=== PATIENT | male | born 1975 | race Caucasian/White ===

== ENCOUNTER 2021-03-17 07:59 | Emergency (ER) | payer SELFPAY ==
[2021-03-17 08:53] LABS: #Eosinphils 0.1 10x3/uL (0.0-0.5); #Monocytes 0.4 10x3/uL (0.0-1.1); #Neutrophils 2.4 10x3/uL (1.5-8.4); %Basophils 0.8 % (0.0-2.0); %Eosinophils 2.7 % (0.0-6.0); %Lymphocytes 36.6 % (18.0-47.0); %Neutrophils 50.1 % (40.0-75.0); Hemoglobin 15.2 g/dL (13.5-17.5); Mean Corpuscular HGB CONC 33.9 g/dL (32.0-36.0); Mean Corpuscular Hemoglobin 30.4 pg (27.0-33.0); Mean Corpuscular Volume 89.6 fl (81.2-95.1); Mean Platelet Volume 11.6 fl (7.4-10.4); Platelet Count 181 10x3/uL (150-450); RBC Distribution Width 11.9 % (11.5-14.5); White Blood Cell (WBC) Count 4.8 10x3/uL (3.5-10.5)
[2021-03-17 09:14] LABS: ALT (SGPT) 24 U/L (8-55); AST (SGOT) 19 U/L (5-34); Albumin 4.7 g/dL (3.5-5.0); Alkaline Phosphatase 58 U/L (40-110); Anion Gap 14 mmol/L (10-20); BUN (Urea Nitrogen) 14 mg/dL (8.9-20.6); Bilirubin, Total 0.5 mg/dL (0.2-1.2); Calc. Creatinine Clearance 0 mL/min (70-130); Calcium 9.5 mg/dL (7.8-10.44); Carbon Dioxide 29 mmol/L (22-29); Chloride 102 mmol/L (98-107); Globulin 2.8 g/dL (2.4-3.5); Glucose 105 mg/dL (70-105); Potassium 4.3 mmol/L (3.5-5.1); Protein, Total 7.5 g/dL (6.0-8.3); Sodium 141 mmol/L (136-145)
== END 2021-03-17 10:16 | disposition home or self-care (01) ==
LOC: CSHERS 07:59
DX: R56.9 Unspecified convulsions (principal)
CPT/HCPCS: 70450; 80053; 84146; 85025